=== PATIENT | male | born 1980 | race African-American/Black ===

== ENCOUNTER 2018-07-17 11:47 | Emergency (ER) | payer SELFPAY ==
[~2018-07-17] VITALS: Ht 188 cm; Wt 81.8 kg
[2018-07-17 12:08] VITALS: BP 136/85
[2018-07-17 13:04] LABS: CLARITY URINE CLEAR (CLEAR); COLOR URINE YELLOW (YELLOW); KETONES URINE NEGATIVE (NEGATIVE); LEUKOCYTE ESTERASE URINE NEGATIVE (NEGATIVE); NITRITE URINE NEGATIVE (NEGATIVE); OCCULT BLOOD URINE NEGATIVE (NEGATIVE); PROTEIN URINE NEGATIVE (NEGATIVE); SPECIFIC GRAVITY URINE 1.002 (1.005-1.030); UROBILINOGEN URINE 0.2 E.U./dL (0.2-1.0)
== END 2018-07-17 13:01 | disposition home or self-care (01) ==
LOC: ER 11:47
DX: L85.0 Acquired ichthyosis (principal)
CPT/HCPCS: 99283